=== PATIENT | female | born 1960 | race Hispanic/Latino ===

== ENCOUNTER 2018-10-16 14:24 | Outpatient (CLI) | payer BC, MEDICARE ==
--- NOTE | 2018-10-16 15:36 | RAD ---
RIGHT FOOT THREE VIEWS: HISTORY: Infection in great toe. COMPARISON: 06/29/15 (the most recent exam available for comparison). 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 Since the prior examination, there has been development of a Freiberg's type infraction of the 2nd metatar silvia head. There are marked arthritic changes of the first metatarsophalangeal joint, and there SI an area of bony erosive change along the medial side of the proximal phalanx of the great toe, at the i nterphalangeal joint. These changes are very suspicious for osteomyelitis. IMPRESSION: Findings very suspicious for osteomyelitis of the proximal phalanx of the great toe. POS: CHRISTOPHER
== END 2018-10-16 14:25 | disposition home or self-care (01) ==
LOC: BICRAD 14:24
PROVIDERS: ATTEND Internal Medicine Infectious Disease
DX: M86.271 Subacute osteomyelitis, right ankle and foot (principal)

== ENCOUNTER 2020-06-30 18:33 | Inpatient (IN) | payer BC, MEDICARE ==
[~2020-06-30 18:33] MED LIST: Iopamidol-370 76% 500 ML 1 ML ONE
[2020-06-30 19:01] LABS: #Basophils 0.1 thou/uL (0.0-0.2); #Eosinphils 0.1 thou/uL (0.0-0.7); #Lymphocytes 0.5 thou/uL (1.20-3.40); #Monocytes 0.1 thou/uL (0.11-0.59); #Neutrophils 5.3 thou/uL (1.40-6.50); %Basophils 0.8 % (0.0-1.0); %Lymphocytes 8.9 % (21.0-51.0); %Monocytes 1.2 % (0.0-10.0); %Neutrophils 88.2 % (42.0-75.0); Hemoglobin 11.7 g/dL (12.0-16.0); Mean Corpuscular HGB CONC 33.9 g/dL (32.0-36.0); Mean Corpuscular Hemoglobin 31.4 pg (27.0-31.0); Mean Corpuscular Volume 92.7 fL (78.0-98.0); Mean Platelet Volume 10.2 fL (7.4-10.4); Platelet Count 149 thou/uL (130-400); RBC Distribution Width 12.4 % (11.5-14.5); Red Blood Cell (RBC) Count 3.73 mill/uL (4.20-5.40)
[2020-06-30 19:21] LABS: ALT (SGPT) 8 U/L (8-55); AST (SGOT) 13 U/L (5-34); Alkaline Phosphatase 110 U/L (40-110); Anion Gap 17 mmol/L (10-20); BUN (Urea Nitrogen) 26 mg/dL (9.8-20.1); Bilirubin, Total 0.6 mg/dL (0.2-1.2); Calc. Creatinine Clearance 0 mL/min (70-130); Carbon Dioxide 23 mmol/L (23-31); Chloride 102 mmol/L (98-107); Globulin 3.1 g/dL (2.4-3.5); Glucose 155 mg/dL (80-115); Magnesium 1.8 mg/dL (1.6-2.6); Potassium 3.7 mmol/L (3.5-5.1); Protein, Total 7.1 g/dL (6.0-8.3); Sodium 138 mmol/L (136-145)
--- NOTE | 2020-06-30 19:30 | RAD ---
LEFT HAND THREE VIEWS: 06/30/20 HISTORY: Pain. COMPARISON: None. FINDINGS: Small joint effusion of the wrist. No acute displaced fracture or malalignment. No erosions or periostitis. Moderate vascular calcifications. Scapholunate interval widening with nor mal alignment of the lunotriquetral interval. IMPRESSION: Small joint effusion of the wrist. No acute osseous abnormality. POS: HOME
--- NOTE | 2020-06-30 19:33 | RAD ---
CHEST ONE VIEW: 06/30/20 HISTORY: Chills and nausea. COMPARISON: Chest radiograph September 25, 2018. FINDINGS: Thoracolumbar spinal fusion hardware is intact. Faint left basilar and lingular air space opacities. No pneumothorax. There is elongation of the anterior right second rib. Small bilateral first ribs. IMPRESSION: Faint lingula and left lower lobe air space opacities concerning for infection. POS: HOME
[2020-06-30 19:35] LABS: Bacteria/HPF 4+ HPF (None Seen); Bilirubin Negative (Negative); Blood, Urine Negative (Negative); Clarity Turbid (Clear); Glucose, Urine (Dipstick) Greater than 1000 mg/dL (Negative); Ketone, Urine Negative (Negative); Leukocyte 250 Leu/uL (Negative); Nitrite Negative (Negative); Protein, Urine (Dipstick) 30 mg/dL (Neg-Trace); RBC/HPF None Seen HPF (0-3); Specific Gravity, Urine 1.018 (1.002-1.036); Urobilinogen Normal mg/dL (Less than 2)
[2020-06-30] MEDS ORDERED: Cefepime 2 GM VIAL ONE (19:44)
[2020-06-30] MEDS ORDERED: Vancomycin 1 GM/200 ML BAG ONE (19:44)
--- NOTE | 2020-06-30 20:28 | CT ---
CT arteriogram chest with IV contrast and 3-D imaging HISTORY: Chest pain. Dyspnea. FINDINGS: There is good contrast opacification pulmonary arteries and thoracic aorta with normal bran gabriel of the great vessels at the aortic arch. Scattered tiny nonspecific subpleural nodules involve each lung. There is mild circumferential wall thickening of the lower esophagus. Old healed fractures of the sternum and ribs are evident. Burst fracture of a lower thoracic vertebra l body is apparent with posterior operative fixation spanning the fracture. IMPRESSION : No evidence of pulmonary embolus. Mild circumferential wall thickening of the lower esophagus. Clinical correlation regarding other sig ns and symptoms of esophagitis is required. Chronic-type findings as detailed above.
--- NOTE | 2020-06-30 20:32 | CT ---
CT abdomen and pelvis with IV contrast HISTORY: Abdomen pain. COMPARISON: 02/12/2017. FINDINGS: The lung bases are clear. The liver, spleen, kidneys, adrenal glands, and pancreas have nor mal CT appearance. Urinary bladder is unremarkable. No evidence of bowel obstruction or inflammation. There is calcification in the arterial structures. Posterior operative fixation spans a burst fractur e at T11 that is stable. IMPRESSION : Atherosclerosis. Chronic-type findings are stable. No acute abnormalities are demonstrated
[2020-06-30 20:59] LABS: SARS-CoV-2 NAA Rapid Test Not Detected (NotDetected)
[2020-06-30 21:06] LABS: Bacteria/HPF 4+ HPF (None Seen); Bilirubin Negative (Negative); Blood, Urine Negative (Negative); Clarity Turbid (Clear); Glucose, Urine (Dipstick) Greater than 1000 mg/dL (Negative); Ketone, Urine Negative (Negative); Leukocyte 250 Leu/uL (Negative); Nitrite Negative (Negative); Protein, Urine (Dipstick) 30 mg/dL (Neg-Trace); RBC/HPF 0-3 HPF (0-3); Specific Gravity, Urine 1.022 (1.002-1.036); Squamous Epithelial 0-3 HPF (0-3); Urobilinogen Normal mg/dL (Less than 2)
[2020-06-30 22:05] LABS: Lactic Acid 1.1 mmol/L (0.5-2.2)
[2020-06-30] MEDS ORDERED: Dextrose 50% Abboject 50 ML SYRINGE SLOW IVP PRN (22:20)
[2020-06-30] MEDS ORDERED: Dextrose 5% in Water 1,000 ML IV PRN (22:20)
[2020-06-30] MEDS ORDERED: Ondansetron PF 4 MG/2 ML Vial IVP PRN (22:20)
[2020-06-30 23:24] LABS: #Lymphocytes 0.7 thou/uL (1.20-3.40); #Monocytes 0.6 thou/uL (0.11-0.59); #Neutrophils 9.1 thou/uL (1.40-6.50); %Basophils 0.2 % (0.0-1.0); %Eosinophils 0.2 % (0.0-10.0); %Monocytes 5.6 % (0.0-10.0); Hemoglobin 10.8 g/dL (12.0-16.0); Mean Corpuscular HGB CONC 32.8 g/dL (32.0-36.0); Mean Corpuscular Hemoglobin 31.2 pg (27.0-31.0); Platelet Count 134 thou/uL (130-400); RBC Distribution Width 12.4 % (11.5-14.5); Red Blood Cell (RBC) Count 3.46 mill/uL (4.20-5.40); White Blood Cell (WBC) Count 10.5 thou/uL (4.8-10.8)
[2020-06-30] MEDS: Sodium Chloride 0.9% 1,000 ML IV SCH (23:26)
--- NOTE | 2020-06-30 23:41 | PDOC.HHP ---
Hospitalist HPI - History of Present Illness Fever and malaise History of Present Illness: 60-year-old woman history of diabetes mellitus presented to the emergency department with a complaint of fever and malaise along with nausea and intermittent vomiting. She denied any cough or shortness of breath. Patient was noted to be hypotensive with a systolic blood pressure in the 60s in the ED. UA suggest the presence of UTI. She has no leukocytosis. Serum creatinine has increased a bit above previous value. Lactate initially elevated to 2.5. Patient diagnosed with septic shock and given IV normal saline bolus. Blood pressure responded to the IV fluid resuscitation. Cultures were obtained, patient started on IV cefepime and vancomycin. She is admitted for further management. Noted she developed an episode of hypotension when she got to the floor. Patient started on another 1 L normal saline bolus. Hospitalist ROS - Review of Systems Other: She denied any diarrhea, she denied any abdominal pain or chest pain or palpita tion. Except as documented, all other systems reviewed and negative. - Medication Medications: Active Medications Generic Name Dose Route Start Last Admin Trade Name Freq PRN Reason Stop Dose Admin Sodium Chloride 1,000 mls @ 126 mls/hr 06/30/20 22:30 06/30/20 23:26 Normal Saline 0.9% IV 1,000 mls .[id number] GIACOMO Administration Medication Instructions Recorded Confirmed Type HumaLOG [HumaLOG Vial] 40 units SC BID 04/07/14 06/30/20 History Hospitalist History - Past Medical History Endocrine: reports: Diabetes Other Medical History: History of pyelonephritis, history of nephrolithiasis, history of splenic infarct, anemia. - Past Surgical History Other Surgical History: Molar extraction, bilateral tubal ligation, back surgery. - Family History Other Family History: Negative for diabetes or coronary artery disease. - Social History Smoking Status: Never smoker Alcohol: reports: None Drugs: reports: none Living Situation: With Family - Exam General Appearance: NAD, awake alert, ill appearing Eye: PERRL, anicteric sclera ENT: normocephalic atraumatic, moist mucosa Neck: supple, no JVD Heart: RRR (Tachycardic), no murmur, no gallops Respiratory: CTAB, no wheezes, no rales, no ronchi Gastrointestinal: soft, non-tender, non-distended, normal bowel sounds Extremities: no cyanosis, no edema Skin: normal turgor, no rashes Neurological: cranial nerve grossly intact, no weakness, no focal deficits Musculoskeletal: normal tone, normal strength, no muscle wasting Psychiatric: normal affect, normal behavior, A&O x 3 Hospitalist Results - Labs Result Diagrams: 06/30/20 23:02 06/30/20 23:02 Lab results: WBC 10.5 thou/uL (4.8-10.8) 06/30/20 23:02 Hgb 10.8 g/dL (12.0-16.0) L 06/30/20 23:02 Hct 32.9 % (36.0-47.0) L 06/30/20 23:02 MCV 95.0 fL (78.0-98.0) 06/30/20 23:02 Plt Count 134 thou/uL (130-400) 06/30/20 23:02 Neutrophils % 87.0 % (42.0-75.0) H 06/30/20 23:02 Sodium 138 mmol/L (136-145) 06/30/20 18:46 Potassium 3.7 mmol/L (3.5-5.1) 06/30/20 18:46 Chloride 102 mmol/L (98-107) 06/30/20 18:46 Carbon Dioxide 23 mmol/L (23-31) 06/30/20 18:46 BUN 26 mg/dL (9.8-20.1) H 06/30/20 18:46 Creatinine 1.79 mg/dL (0.6-1.1) H 06/30/20 18:46 Glucose 155 mg/dL (80-115) H 06/30/20 18:46 Lactic Acid 1.1 mmol/L (0.5-2.2) 06/30/20 21:28 Calcium 10.0 mg/dL (7.8-10.44) 06/30/20 18:46 Total Bilirubin 0.6 mg/dL (0.2-1.2) 06/30/20 18:46 AST 13 U/L (5-34) 06/30/20 18:46 ALT 8 U/L (8-55) 06/30/20 18:46 Alkaline Phosphatase 110 U/L (40-110) 06/30/20 18:46 Troponin I Less than 0.010 ng/mL (< 0.028) 06/30/20 18:46 Serum Total Protein 7.1 g/dL (6.0-8.3) 06/30/20 18:46 Albumin 4.0 g/dL (3.4-4.8) 06/30/20 18:46 Urine Ketones Negative mg/dL (Negative) 06/30/20 20:41 Urine Blood Negative (Negative) 06/30/20 20:41 Urine Nitrite Negative (Negative) 06/30/20 20:41 Ur Leukocyte Esterase 250 Sage/uL (Negative) A 06/30/20 20:41 Urine RBC 0-3 HPF (0-3) 06/30/20 20:41 Urine WBC 11-20 HPF (0-3) A 06/30/20 20:41 Ur Squamous Epith Cells 0-3 HPF (0-3) 06/30/20 20:41 Urine Bacteria 4+ HPF (None Seen) A 06/30/20 20:41 - Radiology Interpretation CT scan - abdomen Status: report reviewed by me (No acute findings.) Hospitalist H&P A/P - Problem (1) Septic shock Code(s): A41.9 - SEPSIS, UNSPECIFIED ORGANISM; R65.21 - SEVERE SEPSIS WITH SEPTIC SHOCK Status: Acute (2) UTI (urinary tract infection) Status: Acute (3) DM type 2 (diabetes mellitus, type 2) Status: Acute (4) Acute renal failure Status: Acute - Plan Plan: Patient admitted to telemetry. Continue IV fluid resuscitation with normal saline bolus blood by aggressive IV fluid maintenance. Will start vasopressors and transfer to IMCU if her blood pressure does not respond to the last liter of NS bolus. IV cefepime and vancomycin. Follow cultures. Check serial lactate per sepsis protocol. Insulin sliding scale for glucose management.
[2020-06-30 23:49] LABS: ALT (SGPT) 7 U/L (8-55); AST (SGOT) 10 U/L (5-34); Albumin 3.4 g/dL (3.4-4.8); Alkaline Phosphatase 91 U/L (40-110); Anion Gap 13 mmol/L (10-20); BUN (Urea Nitrogen) 23 mg/dL (9.8-20.1); Bilirubin, Total 0.5 mg/dL (0.2-1.2); Calc. Creatinine Clearance 34 mL/min (70-130); Calcium 8.5 mg/dL (7.8-10.44); Carbon Dioxide 21 mmol/L (23-31); Chloride 104 mmol/L (98-107); Globulin 2.5 g/dL (2.4-3.5); Glucose 217 mg/dL (80-115); Potassium 3.6 mmol/L (3.5-5.1); Protein, Total 5.9 g/dL (6.0-8.3); Sodium 134 mmol/L (136-145)
[2020-07-01] MEDS: cefTRIAXone\\ROCEPHIN 2 GM in Sodium Chloride 0.9% 100 ML IVPB SCH ×2 (00:40→21:40)
[2020-07-01 01:57] VITALS: BMI 27.1
[2020-07-01] MEDS: Acetaminophen 325 MG TAB PO PRN ×3 (05:04→17:58)
[2020-07-01 07:22] LABS: #Lymphocytes 0.6 thou/uL (1.20-3.40); #Monocytes 0.2 thou/uL (0.11-0.59); #Neutrophils 5.1 thou/uL (1.40-6.50); %Basophils 0.2 % (0.0-1.0); %Eosinophils 0.4 % (0.0-10.0); %Lymphocytes 9.4 % (21.0-51.0); %Monocytes 3.9 % (0.0-10.0); Hemoglobin 10.1 g/dL (12.0-16.0); Mean Corpuscular Hemoglobin 31.7 pg (27.0-31.0); Mean Platelet Volume 10.1 fL (7.4-10.4); Platelet Count 123 thou/uL (130-400); RBC Distribution Width 12.4 % (11.5-14.5); White Blood Cell (WBC) Count 5.9 thou/uL (4.8-10.8)
[2020-07-01 07:31] LABS: Anion Gap 13 mmol/L (10-20); BUN (Urea Nitrogen) 19 mg/dL (9.8-20.1); Calc. Creatinine Clearance 52 mL/min (70-130); Calcium 7.9 mg/dL (7.8-10.44); Carbon Dioxide 20 mmol/L (23-31); Chloride 107 mmol/L (98-107); Glucose 245 mg/dL (80-115); Potassium 3.5 mmol/L (3.5-5.1); Sodium 136 mmol/L (136-145)
--- NOTE | 2020-07-01 08:29 | PDOC.HOSPP ---
- Subjective Encounter Date: 07/01/20 Encounter Time: 10:00 Subjective: Patient without complaints. Feeling better. Never had to start Levophed after transfer from the floor last night. BP stable this AM on fluids only. - Objective Vital Signs & Weight: Vital Signs (12 hours) Temp Pulse Resp BP Pulse Ox 07/01/20 05:04 99.8 F H 07/01/20 02:00 97.8 F 07/01/20 01:30 95 07/01/20 00:30 67/40 L 06/30/20 23:48 98 06/30/20 23:43 94/51 L 06/30/20 22:15 98.2 F 101 H 17 84/46 L 98 Weight Weight 138 lb 10.732 oz Most Recent Monitor Data Heart Rate from ECG 96 NIBP 88/46 NIBP BP-Mean 60 Respiration from ECG 27 SpO2 93 I&O: 06/30/20 07/01/20 07/02/20 06:59 06:59 06:59 Intake Total 577 Output Total 1015 Balance -438 Result Diagrams: 07/01/20 06:56 07/01/20 06:56 Additional Labs: Accuchecks 06/30/20 06/30/20 23:29 18:48 POC Glucose 211 H 154 H Hospitalist ROS - Review of Systems Constitutional: denies: fever (Tmax 99), chills Respiratory: denies: cough, shortness of breath Cardiovascular: denies: chest pain, palpitations Gastrointestinal: denies: nausea, vomiting, abdominal pain - Medication Medications: Active Medications Generic Name Dose Route Start Last Admin Trade Name Freq PRN Reason Stop Dose Admin Acetaminophen 650 mg 06/30/20 22:20 07/01/20 05:04 Acetaminophen 325 Mg Tab PO 650 mg Q4H PRN Administration Headache/Fever/Mild Pain (1-3) Sodium Chloride 1,000 mls @ 126 mls/hr 06/30/20 22:30 06/30/20 23:26 Normal Saline 0.9% IV 1,000 mls .Q7H57M GIACOMO Administration Ceftriaxone Sodium 2 gm/ 100 mls @ 200 mls/hr 06/30/20 22:30 07/01/20 00:40 Sodium Chloride IVPB 100 mls Q24HR GIACOMO Administration - Exam General Appearance: NAD, awake alert ENT: moist mucosa Heart: no murmur, no gallops, no rubs Heart - other findings: mild tachycardia Respiratory: CTAB, no wheezes, no rales, no ronchi Gastrointestinal: soft, non-tender, non-distended, normal bowel sounds Extremities: no edema Psychiatric: normal affect, normal behavior Hosp A/P (1) Septic shock Code(s): A41.9 - SEPSIS, UNSPECIFIED ORGANISM; R65.21 - SEVERE SEPSIS WITH SEPTIC SHOCK Status: Acute (2) UTI (urinary tract infection) Status: Acute (3) Acute renal failure Status: Acute (4) DM type 2 (diabetes mellitus, type 2) Status: Chronic (5) Bacteremia Code(s): R78.81 - BACTEREMIA Status: Acute Plan: Klebsiella - Plan Patient transfered to ICU but didn't have to be put on Levophed overnight due to persistent hypotension. On Rocephin and Vanc since 06/30/2020. Blood and urine cultures pending. Now growing 1/2 Klebsiella in blood. Blood sugars decently controlled. DVT Proph: Lovenox GI Proph: Pepcid
[2020-07-01] MEDS: Enoxaparin Sodium 40 MG/0.4 ML SYRINGE SC SCH (08:46)
[2020-07-01] MEDS: Sodium Chloride 0.9% 1,000 ML IV SCH ×3 (08:46→20:10)
[2020-07-01] MEDS: Famotidine 20 MG TAB PO SCH ×2 (08:58→20:10)
[2020-07-01] MEDS ORDERED: Cyclobenzaprine 10 MG TAB PO PRN (11:30)
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
--- NOTE | 2020-07-01 12:00 | RAD ---
LEFT FOOT 3 VIEWS: Date: 07/01/2020 HISTORY: Left foot pain. FINDINGS/IMPRESSION: No fracture, dislocation, or bony destruction is identified. POS: OFF
--- NOTE | 2020-07-01 12:03 | RAD ---
Exam:3 views right foot HISTORY: Pain. COMPARISON: 10/16/2018 FINDINGS: Stable amputation of the fourth digit. Previously noted erosive changes involving the first interphalangeal joint space are less evident. There is moderate degenerative change involving the first interphalangeal joint space, first metatarsal phalangeal joint, second metatarsal phalangeal rosa int space. There is erosive and destructive changes involving the second metatarsal head. Erosive changes along the third metatarsal head is also noted. Lisfranc alignment is maintained. No acute fractures. Chronic changes involving the medial malleolus. IMPRESSION: 1. Erosive changes involving the second and third metatarsal heads, worrisome for osteoarthritis unti l proven otherwise. 2. Multi articular degenerative changes as detailed above
[2020-07-01] MEDS ORDERED: Gabapentin 300 MG CAP PO SCH (12:45)
[2020-07-01] MEDS: Insulin Regular 300 UNITS/3 ML VIAL SC PRN ×2 (14:38→21:06)
--- NOTE | 2020-07-01 15:46 | RAD ---
Exam: Lumbar spine 3 views HISTORY: Bilateral lower extremity pain. FINDINGS: Incompletely evaluated hardware along the distal thoracic and upper lumbar spine. There katelynn ear to be chronic irregularities involving what is likely the T10 and T11 level. There are 5 lumbar type vertebra. Lumbar spine vertebral body height is maintained. No fracture. Disc space heights are preserved. No spondylolisthesis or spondylolysis Visualized sacrum and bony pelvis are intact. IMPRESSION: 1. No mammographic abnormality with regards the lumbar spine. 2. Presumed chronic changes involving the distal thoracic spine, incompletely evaluated. Dedicated th oracic spine radiograph series is recommended.
--- NOTE | 2020-07-01 15:58 | RAD ---
XR Thoracic Spine 2 View History: Pain Comparison: None. Findings: Intact thoracic portion of the thoracolumbar hardware. Partial fusion of the T11 fracture a t the T10 vertebral body. Upper thoracic spine is intact. Low-grade interstitial scoliosis of 10 degrees upper thoracic spine. Small bilateral C7 ribs. Impression: Mild dextro scoliosis upper thoracic spine. No acute osseous abnormality.
[2020-07-01] MEDS ORDERED: Vancomycin HCl 750 MG in Sodium Chloride 0.9% 250 ML 250 ML IVPB SCH (20:00)
[2020-07-01] MEDS: Gabapentin 300 MG CAP PO SCH (20:10)
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
[2020-07-02 03:34] LABS: #Eosinphils 0.1 thou/uL (0.0-0.7); #Lymphocytes 1.2 thou/uL (1.20-3.40); #Monocytes 0.4 thou/uL (0.11-0.59); #Neutrophils 2.7 thou/uL (1.40-6.50); %Basophils 0.3 % (0.0-1.0); %Eosinophils 1.8 % (0.0-10.0); %Lymphocytes 27.9 % (21.0-51.0); %Monocytes 9.6 % (0.0-10.0); %Neutrophils 60.4 % (42.0-75.0); Hemoglobin 9.3 g/dL (12.0-16.0); Mean Corpuscular HGB CONC 33.3 g/dL (32.0-36.0); Mean Corpuscular Hemoglobin 31.7 pg (27.0-31.0); Mean Corpuscular Volume 95.1 fL (78.0-98.0); Mean Platelet Volume 10.1 fL (7.4-10.4); Platelet Count 124 thou/uL (130-400); RBC Distribution Width 12.6 % (11.5-14.5); Red Blood Cell (RBC) Count 2.95 mill/uL (4.20-5.40); White Blood Cell (WBC) Count 4.4 thou/uL (4.8-10.8)
[2020-07-02 03:59] LABS: Anion Gap 11 mmol/L (10-20); BUN (Urea Nitrogen) 13 mg/dL (9.8-20.1); Calc. Creatinine Clearance 60 mL/min (70-130); Calcium 7.7 mg/dL (7.8-10.44); Carbon Dioxide 18 mmol/L (23-31); Chloride 111 mmol/L (98-107); Glucose 174 mg/dL (80-115); Potassium 3.7 mmol/L (3.5-5.1); Sodium 136 mmol/L (136-145)
[2020-07-02] MEDS: Sodium Chloride 0.9% 1,000 ML IV SCH (06:22)
[2020-07-02] MEDS: Insulin Regular 300 UNITS/3 ML VIAL SC PRN ×2 (06:43→16:54)
[2020-07-02] MEDS: Famotidine 20 MG TAB PO SCH ×2 (09:00→20:44)
[2020-07-02] MEDS: Gabapentin 300 MG CAP PO SCH ×2 (09:00→20:44)
[2020-07-02] MEDS: Enoxaparin Sodium 40 MG/0.4 ML SYRINGE SC SCH (09:01)
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
--- NOTE | 2020-07-02 14:12 | PRG ---
DATE OF SERVICE: 07/02/2020 SUBJECTIVE: Ms. Batres says her feet feel a 1000% better today. OBJECTIVE: VITAL SIGNS: She is afebrile. Heart rate is in 80s, blood pressure is normal now, respiratory rates in the 20s. LUNGS: Clear. HEART: Regular rhythm. ABDOMEN: Soft. LABORATORY DATA: She is growing Klebsiella out of her urine and her blood. IMPRESSION AND PLAN: Klebsiella urinary tract infection with bacteremia, clinically improved. Severe dysesthesias in her foot yesterday that have resolved with improvement of her hemodynamics. I guess this is related to her sepsis, but very unusual presentation for sepsis. She almost has no pain today. She is stable to move out of a monitored bed in my opinion. We will sign off. Job ID: [id number]
[2020-07-03] MEDS: cefTRIAXone\\ROCEPHIN 2 GM in Sodium Chloride 0.9% 100 ML IVPB SCH ×2 (00:16→22:45)
[2020-07-03 07:19] LABS: Hemoglobin 11.3 g/dL (12.0-16.0); Mean Corpuscular HGB CONC 33.6 g/dL (32.0-36.0); Mean Corpuscular Hemoglobin 31.5 pg (27.0-31.0); Mean Corpuscular Volume 93.6 fL (78.0-98.0); Mean Platelet Volume 9.7 fL (7.4-10.4); Platelet Count 155 thou/uL (130-400); RBC Distribution Width 12.5 % (11.5-14.5); Red Blood Cell (RBC) Count 3.58 mill/uL (4.20-5.40); White Blood Cell (WBC) Count 3.9 thou/uL (4.8-10.8)
[2020-07-03 07:42] LABS: Anion Gap 15 mmol/L (10-20); BUN (Urea Nitrogen) 11 mg/dL (9.8-20.1); Calc. Creatinine Clearance 72 mL/min (70-130); Calcium 8.8 mg/dL (7.8-10.44); Carbon Dioxide 20 mmol/L (23-31); Chloride 105 mmol/L (98-107); Glucose 196 mg/dL (80-115); Potassium 3.6 mmol/L (3.5-5.1); Sodium 136 mmol/L (136-145)
[2020-07-03] MEDS: Famotidine 20 MG TAB PO SCH ×2 (08:39→20:57)
[2020-07-03] MEDS: Gabapentin 300 MG CAP PO SCH ×2 (08:39→20:57)
[2020-07-03] MEDS: Enoxaparin Sodium 40 MG/0.4 ML SYRINGE SC SCH (08:39)
[2020-07-03] MEDS: Insulin Regular 300 UNITS/3 ML VIAL SC PRN ×2 (12:08→17:04)
--- NOTE | 2020-07-03 19:39 | PDOC.HOSPP ---
- Subjective Encounter Date: 07/03/20 Encounter Time: 19:35 Subjective: f/u for Klebsiella bacteremia from UTI receiving Rocephin currently. Overall feels better and tolerating po intake. - Objective Vital Signs & Weight: Vital Signs (12 hours) Temp Pulse Resp BP Pulse Ox 07/03/20 16:50 98.3 F 83 16 93/62 96 07/03/20 11:23 98.0 F 82 16 109/68 97 07/03/20 08:36 93 L 07/03/20 08:00 97.9 F 81 16 128/77 95 Weight Weight 138 lb 10.732 oz Most Recent Monitor Data Heart Rate from ECG 91 NIBP 137/70 NIBP BP-Mean 92 Respiration from ECG 23 SpO2 95 I&O: 07/02/20 07/03/20 07/04/20 06:59 06:59 06:59 Intake Total 2507 650 1000 Output Total 3930 2000 Balance -1423 -1350 1000 Result Diagrams: 07/03/20 06:52 07/03/20 06:52 Additional Labs: Accuchecks 07/03/20 07/03/20 07/03/20 16:41 11:42 05:24 POC Glucose 203 H 333 H 191 H 07/02/20 20:31 POC Glucose 177 H Microbiology 06/30/20 19:51 Nasal swab Influenza Types A,B Direct EIA - Final 06/30/20 19:11 Urine Straight Catheter Urine Culture - Final Klebsiella pneumoniae ssp pneu 06/30/20 18:57 Venous blood - Left Arm Blood Culture - Final Klebsiella pneumoniae ssp pneu 06/30/20 18:46 Venous blood - Right Arm Blood Culture - Final Klebsiella pneumoniae ssp pneu Laboratory Tests 06/30/20 06/30/20 07/01/20 19:51 23:02 06:56 Hgb 10.8 L 10.1 L Vitamin B12 Folate TSH 3rd Generation SARS-CoV-2 Rap RNA(RT-PCR) Not Detected 07/02/20 07/03/20 07/03/20 03:16 06:52 06:52 Hgb 9.3 L Vitamin B12 812 Folate 14.10 TSH 3rd Generation 4.0521 SARS-CoV-2 Rap RNA(RT-PCR) Hospitalist ROS - Medication Medications: Active Medications Generic Name Dose Route Start Last Admin Trade Name Freq PRN Reason Stop Dose Admin Acetaminophen 650 mg 06/30/20 22:20 07/01/20 17:58 Acetaminophen 325 Mg Tab PO 650 mg Q4H PRN Administration Headache/Fever/Mild Pain (1-3) Cyclobenzaprine HCl 10 mg 07/01/20 11:30 07/01/20 12:06 Cyclobenzaprine 10 Mg Tab PO 10 mg TID PRN Administration Muscle Spasm Enoxaparin Sodium 40 mg 07/01/20 09:00 07/03/20 08:39 Enoxaparin Sodium 40 Mg/0.4 Ml Syringe SC 40 mg 0900 GIACOMO Administration Famotidine 20 mg 07/01/20 09:00 07/03/20 08:39 Famotidine 20 Mg Tab PO 20 mg BID GIACOMO Administration Gabapentin 300 mg 07/01/20 21:00 07/03/20 08:39 Gabapentin 300 Mg Cap PO 300 mg BID GIACOMO Administration Ceftriaxone Sodium 2 gm/ 100 mls @ 200 mls/hr 06/30/20 22:30 07/03/20 00:16 Sodium Chloride IVPB 100 mls Q24HR GIACOMO Administration Insulin Human Regular 0 units 06/30/20 22:20 07/03/20 17:04 Insulin Regular 300 Units/3 Ml Vial SC 4 unit .MODERATE SLIDING SC PRN Administration Moderate Correctional Scale Sodium Chloride 10 ml 07/01/20 09:00 07/03/20 08:40 Flush - Normal Saline 10 Ml Syringe IVF 10 ml Q12HR GIACOMO Administration - Exam General Appearance: NAD, awake alert Eye: PERRL, anicteric sclera ENT: normocephalic atraumatic, no oropharyngeal lesions Neck: supple, symmetric, no JVD, no thyromegaly Heart: RRR, no gallops, no rubs, normal peripheral pulses Heart - other findings: S1, S2 Respiratory: CTAB, no wheezes, no rales, no ronchi, normal chest expansion, no tachypnea Gastrointestinal: soft, non-tender, non-distended, normal bowel sounds, no palpable masses, no hepatomegaly Extremities: no cyanosis, no clubbing, no edema Skin: normal turgor, no lesions, no rashes Neurological: cranial nerve grossly intact, no new deficit Musculoskeletal: normal tone, normal strength, no muscle wasting Psychiatric: normal affect, A&O x 3 Hosp A/P (1) Septic shock Code(s): A41.9 - SEPSIS, UNSPECIFIED ORGANISM; R65.21 - SEVERE SEPSIS WITH SEPTIC SHOCK Status: Acute Plan: Secondary to Klebsiella spp bacteremia, continue Rocephin another 24h then convert to Levaquin (2) Bacteremia Code(s): R78.81 - BACTEREMIA Status: Acute Plan: Klebsiella spp, see #1 above (3) Acute renal failure Status: Acute Plan: Resolving, continue IVF's, avoid nephrotoxic meds and limit contrast exposure (4) UTI (urinary tract infection) Status: Acute Plan: Klebsiella spp isolated, see above (5) DM type 2 (diabetes mellitus, type 2) Status: Chronic Plan: ISS, serial accuchecks, ADA - Plan continue antibiotics, out of bed/ambulate, DVT proph w/SCDs Stable currently Continue Rocephin another 24h Convert to Levaquin for outpt abx OOB/ambulate Continue IVF's another 24h Likely home in am
[2020-07-04] MEDS: Insulin Regular 300 UNITS/3 ML VIAL SC PRN (06:10)
[2020-07-04] MEDS: Gabapentin 300 MG CAP PO SCH (08:08)
[2020-07-04] MEDS: Enoxaparin Sodium 40 MG/0.4 ML SYRINGE SC SCH (08:09)
[2020-07-04] MEDS: Famotidine 20 MG TAB PO SCH (08:09)
[2020-07-04 08:23] VITALS: BP 97/62; TEMP 97.1
--- NOTE | 2020-07-04 10:24 | DIS ---
DATE OF ADMISSION: 06/30/2020 DATE OF DISCHARGE: 07/04/2020 DISCHARGE DIAGNOSES: 1. Septic shock secondary to Klebsiella species from urinary tract source, resolved. 2. Bacteremia with Klebsiella species. 3. Urinary tract infection with Klebsiella pneumoniae, resolving. 4. Acute kidney injury, resolved. 5. Diabetes mellitus type 2, labile. CONSULTATIONS: Dr. Kevin with Pulmonology Service. PERTINENT LAB AND X-RAY FINDINGS: Creatinine ranged between 0.82 to 1.79. Estimated GFR ranged between 29 to 71. Lactic acid level ranged between 1.1 to 2.5. Magnesium level 1.8. CRP 11.65. TSH 4.44. Vitamin B12 level 812 and folate 14.10. D-dimer 1.62. COVID-19 PCR not detected on 06/30/2020. Blood cultures x2 positive for Klebsiella pneumoniae species on 06/30/2020. Urine culture dated 06/30/2020, showed greater than 100,000 colonies of Klebsiella pneumoniae species sensitive to quinolones. Influenza A and B antigen dated 06/30/[address] angiogram of the chest dated 06/30/2020, showed no evidence for pulmonary embolus. Portable chest x-ray dated 06/30/2020, showed faint left lower lobe airspace opacity. CT of the abdomen and pelvis dated 06/30/2020, showed no acute intraabdominal process. Three views of the left and right foot showed no evidence of acute process. Lumbar spine radiographs dated 07/01/2020, showed no acute process. Thoracic spine radiographs dated 07/01/2020, showed mild dextroscoliosis of the upper thoracic spine. No acute process. HOSPITAL COURSE: The patient was initially admitted after presenting with general malaise, fever, and general myalgias. The patient underwent extensive evaluation with multiple imaging studies with concern for sepsis picture given urinalysis findings. The patient was noted with lactic acidosis as well as hypotension receiving IV cefepime and vancomycin in addition to IV fluid resuscitation. The patient did meet severe sepsis criteria with septic shock, responding appropriately to IV antibiotics and IV fluids. Urine culture was positive for Klebsiella pneumoniae species as well as 2/2 blood cultures. The patient received IV Rocephin throughout the hospital course without documented fever and no evidence of leukocytosis. Symptomatically, the patient improved with supportive management with metabolic parameters improving with supportive care. I have examined the patient at the time of discharge and discussed followup instructions. The patient verbalizes understanding and agreement, ready for discharge on 07/04/2020. DISCHARGE MEDICATIONS: 1. Levofloxacin 500 mg p.o. daily x7 days. 2. Humalog 40 units subcutaneously b.i.d. FOLLOWUP: The patient may follow up with her primary care provider in [place], [place]. CONDITION ON DISCHARGE: Stable. ACTIVITY: Ad-main. DIET: ADA and heart healthy. CODE STATUS: Full. DISPOSITION: To home on 07/04/2020. TIME SPENT: Total time preparing and coordinating discharge, 32 minutes. Job ID: [id number]
--- NOTE | 2020-07-06 08:27 | PQF ---
CLINICAL DOCUMENTATION CLARIFICATION FORM: Dear Dr. Rick Hanks Date: 07.06.20 Please exercise your independent, professional judgment in responding to the clarification form. Clinical indicators are provided on the bottom of this form for your review. Please check appropriate box(es) to clarify if the following diagnosis has been ruled in our ruled out: Pneumonia [ ] Ruled in diagnosis [ ] Continue to treat [ ] Resolved [ x ] Ruled out diagnosis [ ] Improving [ ] Cannot rule out diagnosis [ ] Other diagnosis [ ] Unable to determine In addition, please specify: Present on Admission (POA): [ ] Yes [ x ] No [ ] Unable to determine For continuity of documentation, please document condition throughout progress notes and discharge summary. Thank You. To be completed by CDI/Coding staff for physician review: CLINICAL INDICATORS - SIGNS / SYMPTOMS / LABS / RESULTS AND LOCATION IN MR 11.13 PN ([facility]): *Severe sepsis secondary to Klebsiella bacteremia and UTI vs Pneumonia. *CXR shows possible left lower lobe Pneumonia *Blood cultures are growing Klebsiella UTI and 2/2 Klebsiella in her blood RISK FACTORS / RESULTS AND LOCATION IN MR 11.11 H&P ([facility]): * PMH - DM *Septic Shock; Severe Sepsis; UTI TREATMENTS / RESULTS AND LOCATION IN MR 11.13 PN ([facility]): started on Vancomycin and ceftriaxone we will discontinue Vancomycina and continue Ceftriaxone CDS Signature: Krysten Jacobs RN, CCDS Phone #: [phone] [email or web address] This is a permanent part of the Medical Record [facility]
--- NOTE | 2020-07-10 12:15 | EKG ---
Test Reason : Blood Pressure : / mmHG Vent. Rate : 097 BPM Atrial Rate : 097 BPM P-R Int : 150 ms QRS Dur : 084 ms QT Int : 344 ms P-R-T Axes : 050 047 084 degrees QTc Int : 436 ms Normal sinus rhythm Normal ECG Confirmed by TARA REYES ([id number]), video tape editor YVAN CAREY ([id number]) on 07/10/2020 12:14:48 PM Referred By: Confirmed By:TARA REYES
== END 2020-07-04 12:38 | disposition home or self-care (01) | DRG 871 ==
LOC: ERS 18:33 → 2NO 20:53 → UNDOADMIN 20:55 → 2NO 20:55 → CCU 07-01 01:28 → IMCU/EMU 07-01 23:52 → T4-B 07-02 13:13
PROVIDERS: ADMIT Internal Medicine; ATTEND Family Medicine
DX: A41.59 Other Gram-negative sepsis (principal); R65.21 Severe sepsis with septic shock; N39.0 Urinary tract infection, site not specified; N17.9 Acute kidney failure, unspecified; E87.2 Acidosis; Z20.828 Contact with and (suspected) exposure to other viral communicable diseases; E11.9 Type 2 diabetes mellitus without complications; E86.0 Dehydration; I10 Essential (primary) hypertension; D64.9 Anemia, unspecified; M19.071 Primary osteoarthritis, right ankle and foot; R20.8 Other disturbances of skin sensation; Z98.51 Tubal ligation status; Z79.4 Long term (current) use of insulin
CPT/HCPCS: 36415; 36416; 51702; 71045; 71275; 72070; 72100; 74177; 80048; 80053; 81003; 81015; 82607; 82746; 83605; 83735; 84443; 84484; 85025; 85027; 85379; 85652; 86140; 87040; 87077; 87086; 87149; 87186; 87804; 93005; 96365; 96368; J0692; J0696; J1650; J1815; J3370; J3490; J7050; Q9967; U0002

== ENCOUNTER 2021-05-06 08:30 | Emergency (ER) | payer MEDICARE ==
[2021-05-06 09:26] LABS: #Lymphocytes 0.6 thou/uL (1.20-3.40); #Monocytes 0.6 thou/uL (0.11-0.59); #Neutrophils 11.6 thou/uL (1.40-6.50); %Basophils 0.1 % (0.0-1.0); %Eosinophils 0.3 % (0.0-10.0); %Lymphocytes 4.4 % (21.0-51.0); %Monocytes 4.4 % (0.0-10.0); %Neutrophils 90.7 % (42.0-75.0); Hemoglobin 11.6 g/dL (12.0-16.0); Mean Corpuscular HGB CONC 34.2 g/dL (32.0-36.0); Mean Corpuscular Hemoglobin 31.5 pg (27.0-31.0); Mean Corpuscular Volume 92.1 fL (78.0-98.0); Mean Platelet Volume 9.4 fL (7.4-10.4); Platelet Count 202 thou/uL (130-400); RBC Distribution Width 13.6 % (11.5-14.5); Red Blood Cell (RBC) Count 3.69 mill/uL (4.20-5.40); White Blood Cell (WBC) Count 12.8 thou/uL (4.8-10.8)
[2021-05-06 09:38] LABS: Acetaminophen Less than 6.0 mcg/mL (10.0-30.0); Alcohol Less than 10 mg/dL (Less than 10); Salicylate Less than 8.0 mg/dL (15.0-30.0)
[2021-05-06 09:43] LABS: ALT (SGPT) 18 U/L (8-55); AST (SGOT) 16 U/L (5-34); Alkaline Phosphatase 129 U/L (40-110); Anion Gap 14 mmol/L (10-20); BUN (Urea Nitrogen) 26 mg/dL (9.8-20.1); Bilirubin, Total 0.7 mg/dL (0.2-1.2); Calc. Creatinine Clearance 0 mL/min (70-130); Calcium 9.2 mg/dL (7.8-10.44); Carbon Dioxide 24 mmol/L (23-31); Chloride 98 mmol/L (98-107); Globulin 2.9 g/dL (2.4-3.5); Glucose 337 mg/dL (80-115); Potassium 4.9 mmol/L (3.5-5.1); Protein, Total 6.9 g/dL (5.8-8.1); Sodium 131 mmol/L (136-145)
[2021-05-06 10:16] LABS: Bacteria/HPF 3+ HPF (None Seen); Bilirubin Negative (Negative); Blood, Urine Negative (Negative); Clarity Turbid (Clear); Glucose, Urine (Dipstick) 500 mg/dL (Negative); Ketone, Urine Negative (Negative); Leukocyte 250 Leu/uL (Negative); Nitrite Negative (Negative); Protein, Urine (Dipstick) 20 mg/dL (Neg-Trace); RBC/HPF 0-3 HPF (0-3); Specific Gravity, Urine 1.013 (1.002-1.036); Squamous Epithelial 0-3 HPF (0-3); Urobilinogen Normal mg/dL (Less than 2); WBC/HPF 21-50 HPF (0-3); pH, Urine 5.5 (5.0-9.0)
[2021-05-06 10:45] LABS: Amphetamine Not Detected (NotDetected); Barbiturates Screen Not Detected (NotDetected); Benzodiazepine Screen Not Detected (NotDetected); Cocaine Metabolite Screen Not Detected (NotDetected); Methadone Not Detected (NotDetected); Methamphetamine Not Detected (NotDetected); Opiate Screen Not Detected (NotDetected); Oxycodone Screen Not Detected (NotDetected); Phencyclidine (PCP) Not Detected (NotDetected); THC/Cannabinoid Screen Not Detected (NotDetected); Tricyclic Screen Not Detected (NotDetected)
[2021-05-06] MEDS ORDERED: cefTRIAXone\\ROCEPHIN 2 GM VIAL ONE (12:47)
== END 2021-05-06 13:20 | disposition home or self-care (01) ==
LOC: ERS 08:30
DX: N17.9 Acute kidney failure, unspecified (principal); N39.0 Urinary tract infection, site not specified; E11.9 Type 2 diabetes mellitus without complications; I10 Essential (primary) hypertension
CPT/HCPCS: 36415; 70450; 71045; 72125; 80053; 80306; 80307; 81003; 81015; 83605; 84484; 85025; 87040; 87086; 93005; 94760; J0696

== ENCOUNTER 2022-06-02 15:09 | Emergency (ER) | payer OTHER | END 2022-06-02 18:00 | disposition home or self-care (01) | LOC: ERS 15:09 | DX: S82.141A Displaced bicondylar fracture of right tibia, initial encounter for closed fracture (principal); W19.XXXA Unspecified fall, initial encounter ==

== ENCOUNTER 2022-06-13 03:24 | Inpatient (IN) | payer OTHER ==
[2022-06-13 03:58] LABS: #Lymphocytes 0.6 thou/uL (1.20-3.40); #Monocytes 0.4 thou/uL (0.11-0.59); #Neutrophils 6.9 thou/uL (1.40-6.50); %Eosinophils 0.6 % (0.0-10.0); %Lymphocytes 7.5 % (21.0-51.0); Hemoglobin 9.8 g/dL (12.0-16.0); Mean Corpuscular HGB CONC 32.9 g/dL (32.0-36.0); Mean Corpuscular Hemoglobin 30.6 pg (27.0-31.0); Mean Corpuscular Volume 92.9 fl (78.0-98.0); Mean Platelet Volume 9.1 fL (7.4-10.4); Platelet Count 209 thou/uL (130-400); RBC Distribution Width 13.6 % (11.5-14.5); Red Blood Cell (RBC) Count 3.21 mill/uL (4.20-5.40)
[2022-06-13] MEDS ORDERED: Rocuronium Bromide 10 MG/ML (10ML VIAL) ONE (04:00)
[2022-06-13] MEDS ORDERED: Tenecteplase 50 MG - STEMI KIT ONE (04:00)
[2022-06-13] MEDS ORDERED: EPINEPHrine 1 MG/10 ML Abboject SYRINGE ONE (04:00)
[2022-06-13] MEDS ORDERED: Atropine Sulfate 1 mg/10 ml Syringe ONE (04:00)
[2022-06-13] MEDS ORDERED: Sodium Bicarb 50 MEQ/50 ML Abboject 8.4% SYRINGE ONE (04:00)
[2022-06-13] MEDS ORDERED: Calcium Chloride 1 GM/10 ML Abboject SYRINGE ONE (04:00)
[2022-06-13 04:17] LABS: ALT (SGPT) 25 U/L (8-55); AST (SGOT) 34 U/L (5-34); Albumin 3.5 g/dL (3.4-4.8); Alkaline Phosphatase 159 U/L (40-110); Anion Gap 14 mmol/L (10-20); BUN (Urea Nitrogen) 23 mg/dL (9.8-20.1); Bilirubin, Total 0.6 mg/dL (0.2-1.2); Calc. Creatinine Clearance 0 mL/min (70-130); Calcium 8.9 mg/dL (7.8-10.44); Carbon Dioxide 25 mmol/L (23-31); Chloride 98 mmol/L (98-107); Estimated GFR 30; Globulin 3.2 g/dL (2.4-3.5); Glucose 183 mg/dL (80-115); Potassium 3.9 mmol/L (3.5-5.1); Protein, Total 6.7 g/dL (5.8-8.1); Sodium 133 mmol/L (136-145)
[2022-06-13] MEDS ORDERED: Ondansetron PF 4 MG/2 ML Vial ONE ×2 (04:20→07:38)
[2022-06-13] MEDS ORDERED: Ibuprofen 200 MG TAB ONE (04:20)
[2022-06-13 04:41] LABS: CKMB 1.3 ng/mL (0-6.6)
[2022-06-13 04:41] LABS: SARS-CoV-2 NAA Rapid Test Not Detected (NotDetected)
[2022-06-13] MEDS ORDERED: Aspirin Chewable 81 MG TAB ONE (05:02)
[2022-06-13] MEDS ORDERED: NOREPINEPHRINE 8 MG/250 ML-D5W 250 ML ONE (06:14)
[2022-06-13] MEDS ORDERED: Acetaminophen 325 MG TAB PO PRN (07:09)
[2022-06-13] MEDS ORDERED: Dextrose 5% in Water 1,000 ML IV PRN (07:09)
[2022-06-13] MEDS ORDERED: Ondansetron PF 4 MG/2 ML Vial IVP PRN (07:09)
[2022-06-13] MEDS ORDERED: HumaLOG 300 UNITS/3 ML VIAL SC PRN ×2 (07:09)
[2022-06-13] MEDS ORDERED: Dextrose 50% Abboject 50 ML SYRINGE SLOW IVP PRN (07:09)
[2022-06-13] MEDS ORDERED: Ondansetron ODT 4 MG TAB PO PRN (07:09)
[2022-06-13] MEDS ORDERED: Acetaminophen 650 MG Suppository PR PRN (07:09)
[2022-06-13] MEDS ORDERED: Sodium Chloride 0.9% 1,000 ML IV SCH (07:45)
[2022-06-13] MEDS ORDERED: Hydrocortisone Sod Succ/PF 100 mg/2 ml Vial ONE (08:11)
[2022-06-13 08:18] LABS: Bacteria/HPF 4+ HPF (None Seen); Bilirubin Negative (Negative); Blood, Urine Negative (Negative); Clarity Turbid (Clear); Glucose, Urine (Dipstick) 200 mg/dL (Negative); Ketone, Urine Negative (Negative); Leukocyte 250 Leu/uL (Negative); Nitrite Negative (Negative); Protein, Urine (Dipstick) 30 mg/dL (Neg-Trace); Specific Gravity, Urine 1.012 (1.002-1.036); pH, Urine 7.5 (5.0-9.0)
[2022-06-13] MEDS ORDERED: Enoxaparin Sodium 40 MG/0.4 ML SYRINGE SC SCH (09:00)
[2022-06-13] MEDS ORDERED: Sodium Bicarb 50 MEQ/50 ML VIAL ONE ×3 (09:07→09:14)
[2022-06-13] MEDS ORDERED: Piperacillin/Tazobactam 3.375 GM in Sodium Chloride 0.9% 100 ML IVPB SCH (16:00)
[2022-06-13] MEDS ORDERED: VANCOMYCIN 1.25 GM/250 ML BAG 1.25 GM in Premix Bag 1 BAG IVPB SCH (20:00)
== END 2022-06-13 10:50 | disposition expired | DRG 871 ==
LOC: ERS 03:24 → ERHOLD 07:27 → CCU 09:33 → UNDODISIN 12:29
PROVIDERS: ADMIT Internal Medicine; ATTEND Student in an Organized Health Care Education/Training Program
PROC: 3E03329 Introduction of Other Anti-infective into Peripheral Vein, Percutaneous Approach (ICD-10-PCS; principal; 2022-06-13)
PROC: 5A1935Z Respiratory Ventilation, Less than 24 Consecutive Hours (ICD-10-PCS; 2022-06-13)
PROC: 3E033XZ Introduction of Vasopressor into Peripheral Vein, Percutaneous Approach (ICD-10-PCS; 2022-06-13)
PROC: 5A12012 Performance of Cardiac Output, Single, Manual (ICD-10-PCS; 2022-06-13)
PROC: 3E03317 Introduction of Other Thrombolytic into Peripheral Vein, Percutaneous Approach (ICD-10-PCS; 2022-06-13)
PROC: 0BH17EZ Insertion of Endotracheal Airway into Trachea, Via Natural or Artificial Opening (ICD-10-PCS; 2022-06-13)
DX: A41.9 Sepsis, unspecified organism (principal); I21.9 Acute myocardial infarction, unspecified; R65.21 Severe sepsis with septic shock; E87.20 Acidosis, unspecified; N17.9 Acute kidney failure, unspecified; E11.9 Type 2 diabetes mellitus without complications; I10 Essential (primary) hypertension; D64.9 Anemia, unspecified; R77.8 Other specified abnormalities of plasma proteins; I46.8 Cardiac arrest due to other underlying condition; R57.0 Cardiogenic shock; Z79.4 Long term (current) use of insulin; Z79.899 Other long term (current) drug therapy; Z78.1 Physical restraint status
CPT/HCPCS: 31500; 36415; 36416; 70450; 71045; 80053; 81003; 81015; 82553; 83605; 84484; 85025; 87040; 93005; 94002; J0171; J0461; J1720; J2405; J3101